=== PATIENT | male | born 1965 | race Hispanic/Latino ===

== ENCOUNTER → 2023-04-30 09:15 | Outpatient (REF) | payer BC, SELFPAY | LOC: RCS 09:15 | PROVIDERS: ATTENDING PHYSICIAN Internal Medicine Cardiovascular Disease; FAMILY PHYSICIAN Family Medicine | DX: R00.2 Palpitations (principal) | CPT/HCPCS: 93017 ==

== ENCOUNTER → 2023-05-05 07:15 | Outpatient (REF) | payer BC, SELFPAY | LOC: DHCBC HW 07:15 | PROVIDERS: ATTENDING PHYSICIAN Internal Medicine Cardiovascular Disease; FAMILY PHYSICIAN Family Medicine | DX: R00.2 Palpitations (principal) | CPT/HCPCS: 93306 ==

== ENCOUNTER 2025-01-08 19:46 | Emergency (ER) | payer BC, SELFPAY ==
[2025-01-08 19:48] VITALS: BP 136/65
[2025-01-08 20:08] LABS: Hematocrit 42.9 % (39.0-52.0); Hemoglobin 15.0 g/dL (13.0-18.0); Mean Corp Hgb Conc. 35.0 g/dL (33.0-37.0); Mean Corpuscular Volume 86.3 fL (80.0-94.0); Nucleated Red Blood Cells % 0 % (-); Platelet Count 157 10^3/uL (130-400); Red Cell Dist. Width 12.3 % (11.5-14.5); Urine Character Clear (Clear)
[2025-01-08 20:27] LABS: ALT (SGPT) 18 U/L (0-50); AST (SGOT) 22 U/L (17-59); Albumin 4.0 g/dl (3.5-5.0); Alkaline Phosphatase 92 U/L (38-126); Blood Urea Nitrogen 18 mg/dl (9-20); Calcium 9.0 mg/dl (8.4-10.2); Carbon Dioxide 28 mmol/L (22-30); Chloride 103 mmol/L (98-107); Glucose 120 mg/dl (70-99); Potassium 3.9 mmol/L (3.5-5.1); Sodium 134 mmol/L (135-145); Total Protein 6.7 g/dl (6.3-8.2); Urine Red Blood Cell 0-2 /HPF (0-2); Urine Squamous Cell 0-2 /LPF (Few); Urine White Cell 26-30 /HPF (0-5); eGFR > 60.00
[2025-01-08 21:25] VITALS: BP 111/72
--- NOTE | 2025-01-08 22:00 | ED.GENMED ---
History of Present Illness
General
Chief Complaint: Fever
Source: patient
Exam Limitations: none
Time Seen by Provider: 01/08/25 20:20
Nursing documentation reviewed up to this point in time: agreed with
History of Present Illness
History of Present Illness:
Patient to emergency department with complaint of fever, back pain. Symptoms started yesterday. States the fever persisted today and he noticed foul-smelling urine. Brought to the emergency department by spouse for evaluation. He was given
ibuprofen prior to his arrival here. On exam he is afebrile.
Past History
Past History
ED Past Medical History: None
ED Past Surgical History: None
Social History
Tobacco: Non-smoker
Review of Systems
Review of Systems
Allergies reviewed?: Yes
All Other Systems: ROS reviewed and negative except as documented in HPI and ROS
Constitutional: Reports fever and fatigue
EENT: Reports no symptoms
Respiratory: Reports no symptoms
Cardiac: Reports no symptoms
ABD/GI: Reports no symptoms
: Reports other (Foul-smelling urine)
Musculoskeletal: Reports back pain (Bilateral lower back pain.)
Skin: Reports no symptoms
Neurological: Reports no symptoms
Psychiatric: Reports no symptoms
Phy Exam
General Physical Exam
General Presentation: well appearing and mild distress
General age: appears stated age
General Skin: warm and dry
General Habitus: normal
General Mental: alert
General Hydration: appears well hydrated
Cardiovascular Exam
Cardiovascular Exam: regular rate/rhythm and no edema
Pulmonary Exam
Pulmonary Exam: lungs clear and no respiratory distress
Gastrointestinal Exam
Gastrointestinal Exam: normal bowel sounds, non tender, soft, no organomegaly, no pulsatile mass, non distended and no cva tenderness
Musculoskeletal Exam
Musculoskeletal Exam: full ROM and neuro vasc intact
Skin Exam
Skin Exam: normal color, warm/dry and no rash
Psychiatric Exam
Psychiatric Exam: normal mood/affect
Course
Orders/Labs/Results
Orders:
Orders
01/08/25 20:01
Complete Blood Count/With Diff Urgent
Comprehensive Metabolic Panel Urgent
Urinalysis Reflex To Culture Urgent
Date Specimen was Collected: 01/08/25
Time Specimen was Collected: 19:52
Urine Microscopic Reflex Cult Urgent
Urine Culture Urgent
ALECIA Source: U
Specimen Description:
Date Specimen was Collected: 01/08/25
Time Specimen was Collected: 19:52
01/08/25 20:54
Renal Only US [US Renal Only W/O Bladder] Urgent
Comment:
Reason For Exam: back pain, UTI
01/08/25 21:14
Lactic Acid Urgent
01/08/25 21:58
COVID-19 Antigen Urgent
Source: Nasal Swab
Influenza A+B Rapid Molecular Urgent
ALECIA Source: Nasal Swab
Specimen Description:
01/08/25 22:35
Amoxicillin 875 mg/Clav 125 mg [Augmentin 875 mg/125 mg] 1 tablet PO NOW STA
Abnormal Lab Results
01/08/25
20:01
WBC 15.7 H 10^3/uL
(4.8-10.8)
MPV 11.7 H fL
(7.4-10.4)
Abs Immat Gran (auto) 0.1 H 10^3/uL
(0-0.05)
Absolute Neuts (auto) 12.6 H 10^3/uL
(1.4-6.5)
Absolute Monos (auto) 1.5 H 10^3/uL
(0.1-0.6)
Neutrophils % 80.7 H %
(42.2-75.2)
Lymphocytes % 8.4 L %
(20.5-51.1)
Monocytes % 9.8 H %
(1.7-9.3)
Sodium 134 L mmol/L
(135-145)
Glucose 120 H mg/dl
(70-99)
Ur Occult Blood Reflex 2+ A
(Negative)
Leukocyte Esterase Rfl 2+ A
(Negative)
Urine WBC (Reflex) 26-30 A /HPF
(0-5)
Urine Bacteria (Reflex) Few A
(Negative)
Urine Albumin (Reflex) 2+ A
(Neg - Trace)
01/08/25 20:01
01/08/25 20:01
Vital Signs
Initial and Last Documented VS:
Initial Vital Signs
Temp Pulse Resp BP Pulse Ox
98.7 F 83 16 136/65 96
01/08/25 19:48 01/08/25 19:48 01/08/25 19:48 01/08/25 19:48 01/08/25 19:48
Last Documented Vital Signs
Temp Pulse Resp BP Pulse Ox
98.3 F 76 16 119/76 98
01/08/25 23:58 01/08/25 23:58 01/08/25 23:58 01/08/25 23:58 01/08/25 23:58
*Radiology
Radiology exam reviewed: radiology read reviewed
*Pulse Oximetry
SaO2: 96
Oxygen Mode of Delivery: Room air
Patient hypoxic: no
*Critical Care Note
Total Time (30-74mins, 75-104mins- exclusive of procedures): Not Applicable
Update Note
Update Note:
Patient to the emergency department for evaluation of fever, back pain, foul smelling urine. His symptoms started yesterday. On arrival to ED today he is afebrile, however he took Tylenol prior to coming to the emergency department. His labs were
reviewed WBC was 15.7 sodium 134 BUN and creat are normal liver enzymes are normal urinalysis +2 occult blood +2 leukocytes 26-30 WBCs. Suspect UTI he was sent for renal ultrasound due to his complaint of back pain. Ultrasound did not reveal any
new acute findings. He was placed on antibiotics and will be discharged home, close follow-up with PCP he was given instructions on signs and symptoms to return to the emergency department and he is agreeable to this plan.
ED Attending Note
-
Portions of this chart may have been created with voice recognition software.� Occasional wrong word or��sound alike� substitutions may have occurred due to the inherent limitations of voice recognition software.
Discharge Plan
Departure
Patient Disposition: Home (Routine Discharge)
Date of Disposition: 01/08/25
Time of Disposition: 23:45
Patient with high blood pressure during this ER visit?: No
Condition: Good
Covid-19: Not Applicable
Discharge Problem:
Acute UTI
Instructions: Urinary tract infections in adults, Fever, Adult (DC)
Prescriptions:
New
amoxicillin-pot clavulanate 875-125 mg tablet
1 tab PO BID Qty: 20 0RF
Referrals:
Chandler Tao MD [Family Provider, Family Practice] - Follow up in 2-3 days
Activity Restrictions/Additional Instructions:
Return to the emergency department immediately for any changes in/worsening of your symptoms. Especially fever not responding to Tylenol or Motrin, increasing pain, vomiting, difficulty urinating, lethargy, or for any further concerns.
Interventions
Interventions:
*Risk Screen - Suicide Last Done: 01/08/25 19:48
*General Assessment Last Done: 01/08/25 19:48
*Neglect/Abuse Screening Last Done: 01/08/25 19:48
*ED- Fall Risk Assessment Last Done: 01/08/25 19:48
*ED COVID-19 Vaccine History Last Done: 01/08/25 19:48
*ED Influenza Vaccine History Last Done: 01/08/25 19:48
*Nursing Disposition Last Done: 01/08/25 23:58
ED- Neurological Assessment Last Done: 01/08/25 20:27
ED-Skin Assessment Last Done: 01/08/25 20:27
Discharge Date and Time
Discharge Date/Time: 01/08/25 23:58
Print Language: [place]
[2025-01-08 22:26] LABS: COVID-19 Antigen Negative (Negative)
[2025-01-08] MEDS: AUGMENTIN 875 MG/125 MG 1 TABLET PO (22:44)
[2025-01-08 23:58] VITALS: BP 119/76
== END 2025-01-08 23:58 | disposition home or self-care (01) ==
LOC: EMR 19:46
PROVIDERS: Emergency Medicine; Nurse Practitioner; EMERGENCY PHYSICIAN Student in an Organized Health Care Education/Training Program; FAMILY PHYSICIAN Family Medicine
DX: N39.0 Urinary tract infection, site not specified (principal); M54.9 Dorsalgia, unspecified; Z11.52 Encounter for screening for COVID-19
CPT/HCPCS: 99284; 76775; 80053; 81003; 81015; 83605; 85025; 87086; 87502; 87811